=== PATIENT | female | born 1950 | race African-American/Black ===

== ENCOUNTER 2019-01-20 01:45 | Emergency (ER) | payer MEDICARE, MEDICAID ==
[2019-01-20] MEDS ORDERED: Colchicine 0.6 MG TAB ONE ×2 (02:13→04:04)
[2019-01-20] MEDS ORDERED: cloNIDine 0.1 MG TAB ONE (04:44)
== END 2019-01-20 05:18 | disposition home or self-care (01) ==
LOC: NAV ERS 01:45
DX: M25.562 Pain in left knee (principal); I10 Essential (primary) hypertension; I25.10 Atherosclerotic heart disease of native coronary artery without angina pectoris; M19.90 Unspecified osteoarthritis, unspecified site
CPT/HCPCS: 99283